=== PATIENT | male | born 1960 | race Caucasian/White ===

== ENCOUNTER → 2021-02-26 | Outpatient (CLI) | payer MEDICAID ==
--- NOTE | 2021-02-26 15:43 | MR ---
EXAMINATION TYPE: MR brain wo/w con DATE OF EXAM: 02/26/2021 3:27 PM COMPARISON: NONE HISTORY: Chronic worsening headache, eye pain. CONTRAST: Patient received 9 mL intravenous Gadavist gadolinium contrast. Multiplanar and multispin-echo imaging of the brain was performed . Pre and post contrast enhanced i mages are obtained. The ventricles, basal cisterns and sulci overlying the cerebral convexities are mildly enlarged. There is evidence of mild periventricular white matter ischemic demyelination. Remote deep white matter insults are also noted. No acute edema is seen on diffusion weighted imaging. There is no evidence for midline shift or mass effect. Acute intracranial hemorrhage or extra-axial collection is not evident. No enhancing lesions are seen. The paranasal sinuses and mastoid air cells are well-aerated. IMPRESSION: Age-related atrophic and chronic small vessel ischemic change. No acute intracranial process at this time. No enhancing lesions are seen.
== END | disposition home or self-care (01) ==
LOC: RADMRIMAIN 14:33
PROVIDERS: ATTEND Psychiatry & Neurology Neurology
DX: C71.9 Malignant neoplasm of brain, unspecified (principal)
CPT/HCPCS: 70553; A9585

== ENCOUNTER → 2021-04-11 | Outpatient (CLI) | payer MEDICAID ==
--- NOTE | 2021-04-11 16:25 | US ---
EXAMINATION TYPE: US abdomen complete DATE OF EXAM: 04/11/2021 COMPARISON: NONE CLINICAL HISTORY: K90.9 Fatty Stool. Bowel changes EXAM MEASUREMENTS: Liver Length: 17.0 cm Gallbladder Wall: 0.2 cm CBD: 0.4 cm Spleen: 11.4 cm Right Kidney: 12.0 x 4.8 x 4.5 cm Left Kidney: 12.1 x 5.7 x 5.2 cm Pancreas: 2mm panc duct visualized, tail obscured by overlying bowel gas Liver: Heterogeneous, probable fatty sparing near GB Gallbladder: wnl Evidence for sonographic Crystal's sign: No CBD: wnl Spleen: wnl Right Kidney: wnl Left Kidney: Lobulated contour, no evidence of hydro, probable renal stone upper pole= 0.9 cm Upper IVC: wnl Abd Aorta: wnl IMPRESSION: 1. Mild fatty infiltration of the liver. Mild hepatomegaly is present.
== END | disposition home or self-care (01) ==
LOC: RADUSWWP 09:16
PROVIDERS: ATTEND Internal Medicine
DX: K76.0 Fatty (change of) liver, not elsewhere classified (principal); R16.0 Hepatomegaly, not elsewhere classified
CPT/HCPCS: 76700

== ENCOUNTER → 2022-06-25 | Outpatient (CLI) | payer MEDICAID ==
--- NOTE | 2022-06-25 13:07 | CT ---
EXAMINATION TYPE: CT brain wo con DATE OF EXAM: 06/25/2022 COMPARISON: None INDICATION: headache after hitting head on car door DLP: 1248 mGycm, Automated exposure control for dose reduction was used. CONTRAST: None CT of the brain is performed utilizing 3 mm thick sections through the posterior fossa and 3 mm thick sections through the remaining calvarium. Study is performed within 24 hours of arrival to the [facility]. No abnormal hyperdensity is present to suggest an acute intracranial hemorrhage. No mass lesion is evident. No acute infarcts are evident. Some mild periventricular white matter hypodensity may be present comp atible with white matter ischemic type changes. Ventricles and sulci are appropriate for the patient age. Paranasal sinuses and mastoid air cells within the [id number] are clear. IMPRESSIONS: 1. Mild periventricular white matter ischemic-type changes. Follow-up MRI can be performed as clini faustino indicated.
--- NOTE | 2022-06-25 13:30 | XR ---
EXAMINATION TYPE: XR shoulder complete RT DATE OF EXAM: 06/25/2022 COMPARISON: NONE HISTORY: Pain TECHNIQUE: Three views are submitted. FINDINGS: The osseous structures are intact. There is no acute fracture or dislocation. Severe AC joint arthro tram. IMPRESSION: 1. Severe AC joint arthropathy.
== END | disposition home or self-care (01) ==
LOC: RADCTMAIN 12:33
PROVIDERS: ATTEND Internal Medicine
DX: M19.011 Primary osteoarthritis, right shoulder (principal); G93.89 Other specified disorders of brain; W22.09XA Striking against other stationary object, initial encounter
CPT/HCPCS: 70450

== ENCOUNTER → 2023-04-07 | Outpatient (CLI) | payer MEDICAID ==
--- NOTE | 2023-04-07 18:46 | MR ---
EXAMINATION TYPE: MR cervical spine wo con DATE OF EXAM: 04/07/2023 COMPARISON: None HISTORY: Neck pain into right shoulder, numbness Rt arm to fingers CONTRAST: Performed utilizing 0 mL intravenous Gadavist gadolinium contrast. TECHNIQUE: Multiplanar multiecho imaging on a 3.0 Audelia magnet is performed through the cervical spin e. FINDINGS: The craniovertebral junction is normal. Vertebral body alignment is normal. C7-T1: No focal disc herniation or significant disc bulge is evident. No spinal canal stenosis or n eural foraminal stenosis is present. C6-7: Minimal disc bulge is present with mild anterior thecal sac compression. This comes in close ap proximation with the spinal cord. No cord deformity is evident. No AP spinal canal stenosis present. Mild bilateral foraminal narrowing is present.. C5-6: Broad-based disc bulge has mild to moderate anterior thecal sac compression. Cord contact may b e present. No cord deformity is evident. No AP spinal canal stenosis present. Moderate bilateral fora dipti is present.. C4-5: No focal disc herniation or significant disc bulge is evident. No spinal canal stenosis or jimmie ral foraminal stenosis is present. C3-4: No focal disc herniation or significant disc bulge is evident. No spinal canal stenosis is pre sent. Mild right foraminal stenosis is present. C2-3: No focal disc herniation or significant disc bulge is evident. No spinal canal stenosis or jimmie ral foraminal stenosis is present. IMPRESSION: 1. Disc bulging C5-6 C6-7. Some cord contact may be present C5-6. No spinal canal stenosis is present . 2. Foraminal stenosis mild on the right at C3-4, moderate bilaterally at C5-6 and mild bilaterally C6 -7.
--- NOTE | 2023-04-09 07:06 | MR ---
EXAMINATION TYPE: MR shoulder RT wo con DATE OF EXAM: 04/07/2023 COMPARISON: Right shoulder x-ray June 25, 2022 ne HISTORY: Rt shoulder pain for 10 months with difficulty raising arm overhead TECHNIQUE: Multiplanar, multisequence imaging of the right shoulder is performed without contrast. FINDINGS: Rotator Cuff: Intact supraspinatus and infraspinatus tendons. Intact subscapularis tendon. Rotator cu ff muscle bulk is preserved. Acromioclavicular Joint: [id number] narrowing and spurring along with capsular hypertrophy. Duong e loss of the underlying fat plane noted sagittal image 15 for reference. Glenohumeral Joint: Small to moderate size joint effusion. No significant spurring. Labrum: Increased signal superior labrum suggesting degenerative tearing coronal image 17. Biceps Tendon: The long head of biceps is in normal location within bicipital groove. Increased centr al signal intracapsular portion. For reference sagittal image 19. Bone marrow signal: No focal abnormal marrow signal is appreciated. Other: No additional significant abnormality is appreciated. IMPRESSION: Superior labral tear is seen. There is partial tearing of the long head of biceps tendon. No significant rotator cuff tear. Degenerative changes are present as detailed above. Underlying imp ingement needs to be considered.
== END | disposition home or self-care (01) ==
LOC: RADMRIMAIN 10:44
PROVIDERS: ATTEND Orthopaedic Surgery
DX: M25.511 Pain in right shoulder (principal); M75.21 Bicipital tendinitis, right shoulder; M50.122 Cervical disc disorder at C5-C6 level with radiculopathy; M99.71 Connective tissue and disc stenosis of intervertebral foramina of cervical region
CPT/HCPCS: 72141

== ENCOUNTER → 2023-09-24 | Outpatient (CLI) | payer MEDICAID ==
[2023-09-24 17:24] LABS: Basophils # (A) 0.09 X 10*3/uL (0.00-0.10); Basophils % (A) 0.8 %; Eosinophils % (A) 4.7 %; HCT 39.4 % (39.6-50.0); HGB 13.3 g/dL (13.0-17.0); Lymphocytes # (A) 2.21 X 10*3/uL (0.90-5.00); Lymphocytes % (A) 20.6 %; MCH 30.2 pg (27.0-32.0); MCHC 33.8 g/dL (32.0-37.0); MCV 89.5 FL (80.0-97.0); Mean Platelet Volume 10.2 FL (9.5-12.2); Monocytes % (A) 10.2 %; NRBC Per 100 WBC 0 X 10*3/uL (0.00-0.01); Neutrophils # (A) 6.78 X 10*3/uL (1.80-7.70); Neutrophils % (A) 63.1 %; Platelet Count 271 X 10*3/uL (140-440); RDW 12.3 % (11.5-14.5); WBC 10.74 X 10*3/uL (4.50-10.00)
[2023-09-24 21:09] LABS: Magnesium 1.7 mg/dL (1.5-2.4); Prostate Specific Antigen 1.74 ng/mL (0.000-4.500)
[2023-09-24 21:49] LABS: ALT 25 U/L (10-49); AST 20 U/L (14-35); Albumin 4.1 g/dL (3.8-4.9); Albumin/Globulin Ratio 1.64 Ratio (1.60-3.17); Alkaline Phosphatase 37 U/L (41-126); BUN/Creat Ratio 16.82 Ratio (12.00-20.00); Blood Urea Nitrogen 18.5 mg/dL (9.0-27.0); Calcium 9.9 mg/dL (8.7-10.3); Carbon Dioxide 22.1 mmol/L (21.6-31.8); Chloride 102 mmol/L (96-109); Chol/HDL Ratio 4.03 Ratio; Globulin 2.5 g/dL (1.6-3.3); Glucose 190 mg/dL (70-110); LDL Cholesterol,Calculated 81.1 mg/dL (0.0-131.0); Potassium 4.4 mmol/L (3.5-5.5); Sodium 140 mmol/L (135-145); Total Bilirubin 0.2 mg/dL (0.3-1.2); Total Protein 6.6 g/dL (6.2-8.2)
== END | disposition home or self-care (01) ==
LOC: LABWHC1 09:35
PROVIDERS: ATTEND Internal Medicine
DX: Z12.5 Encounter for screening for malignant neoplasm of prostate (principal); I10 Essential (primary) hypertension; E11.9 Type 2 diabetes mellitus without complications; E78.5 Hyperlipidemia, unspecified
CPT/HCPCS: 36415; 80053; 80061; 83036; 83735; 84153; 84443; 85025